=== PATIENT | female | born 1930 | race Caucasian/White ===

== ENCOUNTER 2018-08-27 15:48 | Inpatient (IN) | payer MEDICARE ==
[~2018-08-27] VITALS: Ht 157.5 cm; Wt 86.2 kg
[2018-08-27 16:41] LABS: CREATININE 1.9 mg/dL (0.5-1.5); POTASSIUM 3.8 mmol/L (3.5-5.1)
[2018-08-27 16:42] LABS: BASOPHILS % (AUTO) 0.2 % (0.0-5.0); HEMATOCRIT 32.9 % (36-48); LYMPHOCYTES % (AUTO) 2.1 % (21.0-51.0); MEAN CORPUSCULAR HEMOGLOBIN 30.3 pg (27.0-33.0); MEAN CORPUSCULAR HGB CONC 33.8 g/dL (32.0-36.0); MEAN CORPUSCULAR VOLUME 89.5 fL (79-99); MONOCYTES % (AUTO) 3.3 % (3.0-13.0); NEUTROPHILS % (AUTO) 94.4 % (40.0-77.0); PLATELET COUNT (AUTO) 321 K/uL (130-400); RED BLOOD CELL COUNT(AUTO) 3.67 MIL/uL (4.00-5.50); RED CELL DISTRIBUTION WIDTH 14.9 % (11.0-15.5)
[2018-08-27 17:05] LABS: ALBUMIN 2.4 g/dL (3.5-5.0); BILIRUBIN,TOTAL 0.5 mg/dL (0.2-1.0); TOTAL PROTEIN, SERUM 6.4 g/dL (6.0-8.3)
[2018-08-27] MEDS ORDERED: LEVOFLOXACIN 500 MG TABLET ONE (17:24)
[2018-08-27] MEDS ORDERED: ACETAMINOPHEN 325 MG TAB ONE (17:27)
[2018-08-27] MEDS ORDERED: SODIUM CHLORIDE 0.9% 500ML 500 ML IV ONE (17:34)
[2018-08-27 17:48] LABS: APPEARANCE,URINE CLOUDY (CLEAR); BILIRUBIN,URINE NEGATIVE (NEGATIVE); COLOR,URINE YELLOW (YELLOW); GLUCOSE, URINE (UA) NEGATIVE (NEGATIVE); KETONES,URINE NEGATIVE (NEGATIVE); LEUKOCYTE ESTERASE ,URINE MODERATE (NEGATIVE); NITRATE,URINE POSITIVE (NEGATIVE); OCCULT BLOOD,URINE MODERATE (NEGATIVE); PROTEIN,URINE 100 (NEGATIVE); UROBILINOGEN,URINE 0.2 mg/dL (0.2-1.0)
[2018-08-27 17:55] LABS: BACTERIA,URINE Few /HPF (None Seen)
[2018-08-27 17:56] LABS: WBC,URINE 26-50 /HPF (0-1)
[2018-08-27] MEDS ORDERED: ASPIRIN 325 MG TABLET ONE (18:07)
[2018-08-27] MEDS ORDERED: ENOXAPARIN SODIUM 40 MG/0.4 ML SYRINGE SQ ONE (18:07)
[2018-08-27] MEDS ORDERED: VANCOMYCIN 1GM+NS 250ML 250 ML IV ONE (18:47)
[2018-08-28] VITALS (7 sets, daily range): BP systolic 92–134; BP diastolic 50–62
[2018-08-28 00:46] LABS: TROPONIN I 1.05 ng/mL (0.00-0.06)
[2018-08-28 05:25] LABS: BASOPHILS % (AUTO) 0.1 % (0.0-5.0); EOSINOPHILS % (AUTO) 0.1 % (0.0-8.0); HEMATOCRIT 30.2 % (36-48); LYMPHOCYTES % (AUTO) 6.3 % (21.0-51.0); MEAN CORPUSCULAR HEMOGLOBIN 30.7 pg (27.0-33.0); MEAN CORPUSCULAR HGB CONC 34.4 g/dL (32.0-36.0); MEAN CORPUSCULAR VOLUME 89.4 fL (79-99); MONOCYTES % (AUTO) 5.5 % (3.0-13.0); PLATELET COUNT (AUTO) 273 K/uL (130-400); RED BLOOD CELL COUNT(AUTO) 3.38 MIL/uL (4.00-5.50); RED CELL DISTRIBUTION WIDTH 14.6 % (11.0-15.5); WHITE BLOOD COUNT (AUTO) 14.1 K/uL (4.8-10.8)
[2018-08-28 05:49] LABS: BILIRUBIN,TOTAL 0.4 mg/dL (0.2-1.0); CREATININE 1.8 mg/dL (0.5-1.5); MAGNESIUM 2.2 mg/dL (1.80-2.40); POTASSIUM 4.1 mmol/L (3.5-5.1); TOTAL PROTEIN, SERUM 5.7 g/dL (6.0-8.3); TROPONIN I 0.57 ng/mL (0.00-0.06)
[2018-08-28] MEDS: PANTOPRAZOLE SODIUM 40 MG TABLET.DR PO SCH (09:54)
[2018-08-28] MEDS: METOPROLOL TARTRATE 25 MG TAB PO SCH ×2 (09:55→20:51)
[2018-08-28] MEDS: ASPIRIN 325 MG TABLET PO SCH (09:55)
[2018-08-28] MEDS: ENOXAPARIN SODIUM 30 MG/0.3 ML SQ SCH (10:04)
[2018-08-28] MEDS ORDERED: ENOXAPARIN SODIUM 1 MG/KG SQ SCH (11:00)
[2018-08-28] MEDS ORDERED: LEVOFLOXACIN 250 MG/D5W 50ML 50 ML IVPB SCH (18:00)
[2018-08-28] MEDS: SODIUM CHLORIDE 0.9% 1000ML 1,000 ML IV SCH ×2 (18:33→18:34)
[2018-08-28] MEDS ORDERED: DIPHENHYDRAMINE HCL 25 MG CAPSULE PO PRN (20:15)
[2018-08-28] MEDS ORDERED: GENTAMICIN PROTOCOL PER PHARMACY IV SCH (20:15)
[2018-08-28] MEDS ORDERED: GENTAMICIN 80 MG/NS 100 ML PB 100 ML IV SCH (21:00)
[2018-08-28] MEDS: ACETAMINOPHEN 325 MG TAB PO PRN (23:18)
[2018-08-29 03:54] VITALS: BP 128/68
[2018-08-29 04:45] LABS: HEMATOCRIT 32.2 % (36-48); MEAN CORPUSCULAR HEMOGLOBIN 29.9 pg (27.0-33.0); MEAN CORPUSCULAR HGB CONC 33.5 g/dL (32.0-36.0); MEAN CORPUSCULAR VOLUME 89.4 fL (79-99); NUCLEATED RED BLOOD CELLS 0.1 % (0.0-0.19); PLATELET COUNT (AUTO) 275 K/uL (130-400); WHITE BLOOD COUNT (AUTO) 14.2 K/uL (4.8-10.8)
[2018-08-29 04:52] LABS: CREATININE 1.7 mg/dL (0.5-1.5); POTASSIUM 3.7 mmol/L (3.5-5.1)
[2018-08-29 07:30] VITALS: BP 119/68
[2018-08-29] MEDS: ASPIRIN 325 MG TABLET PO SCH (07:54)
[2018-08-29] MEDS: METOPROLOL TARTRATE 25 MG TAB PO SCH ×2 (07:54→20:59)
[2018-08-29] MEDS: PANTOPRAZOLE SODIUM 40 MG TABLET.DR PO SCH (07:55)
[2018-08-29] MEDS: ENOXAPARIN SODIUM 30 MG/0.3 ML SQ SCH (07:56)
[2018-08-29] MEDS ORDERED: ENOXAPARIN SODIUM 30 MG/0.3 ML SQ SCH (08:00)
[2018-08-29] MEDS: SODIUM CHLORIDE 0.9% 1000ML 1,000 ML IV SCH ×2 (08:03→18:21)
[2018-08-29] MEDS: AZTREONAM 1 GM VIAL IVP SCH ×2 (10:32→22:49)
[2018-08-29 11:00] VITALS: BP 117/61
[2018-08-29 16:00] VITALS: BP 134/56
[2018-08-29 20:00] VITALS: BP 122/72
[2018-08-30] VITALS (13 sets, daily range): BP systolic 89–155; BP diastolic 43–99
[2018-08-30] MEDS: ACETAMINOPHEN 325 MG TAB PO PRN (00:52)
[2018-08-30] MEDS: SODIUM CHLORIDE 0.9% 1000ML 1,000 ML IV SCH ×2 (04:21→20:24)
[2018-08-30 05:45] LABS: MEAN CORPUSCULAR HEMOGLOBIN 30.4 pg (27.0-33.0); MEAN CORPUSCULAR VOLUME 89.5 fL (79-99); PLATELET COUNT (AUTO) 280 K/uL (130-400); RED BLOOD CELL COUNT(AUTO) 3.46 MIL/uL (4.00-5.50); RED CELL DISTRIBUTION WIDTH 15.3 % (11.0-15.5); WHITE BLOOD COUNT (AUTO) 15.2 K/uL (4.8-10.8)
[2018-08-30 06:00] LABS: CREATININE 1.7 mg/dL (0.5-1.5); POTASSIUM 3.5 mmol/L (3.5-5.1)
[2018-08-30] MEDS: METOPROLOL TARTRATE 25 MG TAB PO SCH ×2 (08:59→21:12)
[2018-08-30] MEDS: PANTOPRAZOLE SODIUM 40 MG TABLET.DR PO SCH (08:59)
[2018-08-30] MEDS: ENOXAPARIN SODIUM 30 MG/0.3 ML SQ SCH (09:00)
[2018-08-30] MEDS: AZTREONAM 1 GM VIAL IVP SCH ×2 (09:00→21:16)
[2018-08-30] MEDS: ASPIRIN 81MG TAB.CHEW PO SCH (09:06)
[2018-08-30] MEDS ORDERED: SODIUM CHLORIDE 0.9% 500ML 500 ML IV SCH (16:30)
[2018-08-30] MEDS ORDERED: TOPI50TA24 PO (16:54)
[2018-08-30] MEDS ORDERED: AMLO2.5T3 PO (16:54)
[2018-08-30] MEDS ORDERED: OXYB5SYR2 PO (16:54)
[2018-08-30] MEDS ORDERED: OMEP20CA10 PO (16:54)
[2018-08-30] MEDS ORDERED: ATOR40TA69 PO (16:54)
[2018-08-30] MEDS ORDERED: ATOR20TA65 PO (16:54)
[2018-08-30 17:00] LABS: ABG BASE EXCESS -5.7 mmol/L (-2.0-3.0); ABG HCO3 17.6 mmol/L (21.0-28.0); ABG OXYGEN SATURATION 96.8 % (95.0-99.0); ABG PCO2 29 mmHg (32-45)
[2018-08-30] MEDS: IPRATROPIUM/ALBUTEROL SULFATE 3 ML SOLUTION IH SCH ×2 (17:08→21:26)
[2018-08-31] VITALS (23 sets, daily range): BP systolic 92–149; BP diastolic 42–89
[2018-08-31] MEDS: SODIUM CHLORIDE 0.9% 1000ML 1,000 ML IV SCH ×5 (00:21→21:07)
[2018-08-31] MEDS: IPRATROPIUM/ALBUTEROL SULFATE 3 ML SOLUTION IH SCH ×6 (01:35→22:19)
[2018-08-31 03:42] LABS: HEMATOCRIT 29.2 % (36-48); MEAN CORPUSCULAR HEMOGLOBIN 29.3 pg (27.0-33.0); MEAN CORPUSCULAR HGB CONC 32.7 g/dL (32.0-36.0); MEAN CORPUSCULAR VOLUME 89.6 fL (79-99); PLATELET COUNT (AUTO) 246 K/uL (130-400); RED BLOOD CELL COUNT(AUTO) 3.26 MIL/uL (4.00-5.50); RED CELL DISTRIBUTION WIDTH 15.2 % (11.0-15.5); WHITE BLOOD COUNT (AUTO) 18.3 K/uL (4.8-10.8)
[2018-08-31 04:00] LABS: CREATININE 1.4 mg/dL (0.5-1.5); POTASSIUM 4.3 mmol/L (3.5-5.1)
[2018-08-31] MEDS ORDERED: PHARMACY COMMUNICATION MISC SCH (07:45)
[2018-08-31] MEDS: METOPROLOL TARTRATE 25 MG TAB PO SCH ×3 (07:47→21:08)
[2018-08-31] MEDS: ASPIRIN 81MG TAB.CHEW PO SCH (08:17)
[2018-08-31] MEDS: MEROPENEM 500 MG VIAL IVP SCH ×2 (08:17→15:37)
[2018-08-31] MEDS: PANTOPRAZOLE SODIUM 40 MG TABLET.DR PO SCH (08:17)
[2018-08-31] MEDS: ENOXAPARIN SODIUM 30 MG/0.3 ML SQ SCH (08:19)
[2018-08-31] MEDS: AZTREONAM 1 GM VIAL IVP SCH ×2 (09:56→21:07)
[2018-08-31] MEDS: ACETAMINOPHEN 325 MG TAB PO PRN (10:06)
[2018-08-31] MEDS ORDERED: AMIODARONE HCL 150 MG in DEXTROSE 5%-WATER 100 ML IV SCH (11:30)
[2018-08-31] MEDS ORDERED: AMIODARONE HCL 900 MG in DEXTROSE 5%-WATER 500 ML IV SCH (11:30)
[2018-08-31] MEDS ORDERED: LACTATED RINGERS 1000ML IV SCH (11:45)
[2018-08-31] MEDS ORDERED: ENOXAPARIN SODIUM 1 MG/KG SQ SCH (21:00)
[2018-08-31] MEDS: ENOXAPARIN SODIUM 80 MG/0.8 ML SQ SCH (21:07)
[2018-09-01] VITALS (21 sets, daily range): BP systolic 93–149; BP diastolic 49–78
[2018-09-01] MEDS: MEROPENEM 500 MG VIAL IVP SCH ×3 (01:11→16:14)
[2018-09-01] MEDS: IPRATROPIUM/ALBUTEROL SULFATE 3 ML SOLUTION IH SCH ×3 (01:52→10:03)
[2018-09-01 04:06] LABS: HEMATOCRIT 27.3 % (36-48); MEAN CORPUSCULAR HEMOGLOBIN 30.4 pg (27.0-33.0); MEAN CORPUSCULAR HGB CONC 34.1 g/dL (32.0-36.0); MEAN CORPUSCULAR VOLUME 89.2 fL (79-99); PLATELET COUNT (AUTO) 231 K/uL (130-400); RED BLOOD CELL COUNT(AUTO) 3.07 MIL/uL (4.00-5.50); RED CELL DISTRIBUTION WIDTH 15.3 % (11.0-15.5); WHITE BLOOD COUNT (AUTO) 15.9 K/uL (4.8-10.8)
[2018-09-01 04:12] LABS: % IRON SATURATION 6.2 % (22-44)
[2018-09-01 04:25] LABS: CREATININE 1.5 mg/dL (0.5-1.5); MAGNESIUM 1.5 mg/dL (1.80-2.40); PHOSPHORUS 1.8 mg/dL (2.5-4.9); POTASSIUM 3.4 mmol/L (3.5-5.1); THYROID STIMULATING HORMONE 0.49 uIU/mL (0.36-3.74)
[2018-09-01] MEDS: SODIUM CHLORIDE 0.9% 1000ML 1,000 ML IV SCH ×2 (04:46→12:13)
[2018-09-01] MEDS: METOPROLOL TARTRATE 25 MG TAB PO SCH (08:23)
[2018-09-01] MEDS: PANTOPRAZOLE SODIUM 40 MG TABLET.DR PO SCH (08:23)
[2018-09-01] MEDS: ENOXAPARIN SODIUM 80 MG/0.8 ML SQ SCH (08:23)
[2018-09-01] MEDS: ASPIRIN 81MG TAB.CHEW PO SCH (08:23)
[2018-09-01] MEDS ORDERED: POTASSIUM CHLORIDE 20MEQ/100ML 100 ML IV PRN (09:45)
[2018-09-01] MEDS ORDERED: MAGNESIUM 2GM PREMIX 50ML 50 ML IV PRN (09:45)
[2018-09-01] MEDS ORDERED: LIDOCAINE HCL-MPF 1% 2ML VIAL IVP PRN (09:45)
[2018-09-01] MEDS ORDERED: POTASSIUM CHLORIDE 10% ELIXIR 20 MEQ/15 ML UDCUP PO PRN (09:45)
[2018-09-01] MEDS ORDERED: MAGNESIUM SULFATE 1 GM in SODIUM CHLORIDE 0.9% 50 ML IV SCH (09:45)
[2018-09-01] MEDS ORDERED: MAGNESIUM 4GM PREMIX 100ML 100 ML IV SCH (09:45)
[2018-09-01] MEDS: AZTREONAM 1 GM VIAL IVP SCH (10:50)
[2018-09-01] MEDS: POTASSIUM CHLORIDE 20 MEQ ERTAB PO PRN ×2 (12:13→14:21)
[2018-09-01] MEDS ORDERED: POTASSIUM PHOS 15 mMOL+NS250ML 250 ML IV ONE (14:15)
[2018-09-01] MEDS ORDERED: POTASSIUM PHOS 15 mMOL+NS250ML 250 ML IV SCH (14:15)
[2018-09-01] MEDS ORDERED: IPRATROPIUM/ALBUTEROL SULFATE 3 ML SOLUTION IH PRN (16:00)
[2018-09-01] MEDS ORDERED: COMPOUND IV MISC 1 EACH IVSOLN MISC PRN (20:15)
[2018-09-01] MEDS: APIXABAN 2.5 MG TABLET PO SCH (20:35)
[2018-09-01] MEDS: METOPROLOL TARTRATE 50 MG TAB PO SCH (20:36)
[2018-09-01] MEDS: SODIUM CHLORIDE 3% FOR INHALATION 4 ML/AMP VIAL.NEB IH SCH (21:47)
[2018-09-02] MEDS: MEROPENEM 500 MG VIAL IVP SCH ×4 (01:19→23:23)
[2018-09-02] MEDS: SODIUM CHLORIDE 0.9% 1000ML 1,000 ML IV SCH ×2 (03:46→03:48)
[2018-09-02] MEDS: NEUTRA-PHOS PACKET 1 EACH PO SCH ×5 (03:48→20:49)
[2018-09-02 04:00] VITALS: BP 134/70
[2018-09-02 04:25] LABS: HEMATOCRIT 26.2 % (36-48); MEAN CORPUSCULAR HEMOGLOBIN 30.6 pg (27.0-33.0); MEAN CORPUSCULAR HGB CONC 34.6 g/dL (32.0-36.0); MEAN CORPUSCULAR VOLUME 88.6 fL (79-99); PLATELET COUNT (AUTO) 198 K/uL (130-400); RED BLOOD CELL COUNT(AUTO) 2.96 MIL/uL (4.00-5.50); RED CELL DISTRIBUTION WIDTH 15.7 % (11.0-15.5); WHITE BLOOD COUNT (AUTO) 10.7 K/uL (4.8-10.8)
[2018-09-02 04:36] LABS: CREATININE 1.2 mg/dL (0.5-1.5); MAGNESIUM 2.2 mg/dL (1.80-2.40); PHOSPHORUS 2.4 mg/dL (2.5-4.9)
[2018-09-02] MEDS: SODIUM CHLORIDE 3% FOR INHALATION 4 ML/AMP VIAL.NEB IH SCH ×3 (06:09→21:56)
[2018-09-02 07:50] VITALS: BP 125/65
[2018-09-02] MEDS: IRON SUCROSE COMPLEX 100 MG in SODIUM CHLORIDE 0.9% 50 ML IV SCH (08:17)
[2018-09-02] MEDS: ASPIRIN 81MG TAB.CHEW PO SCH (08:17)
[2018-09-02] MEDS: PANTOPRAZOLE SODIUM 40 MG TABLET.DR PO SCH (08:17)
[2018-09-02] MEDS: METOPROLOL TARTRATE 50 MG TAB PO SCH ×2 (08:17→20:48)
[2018-09-02] MEDS: APIXABAN 2.5 MG TABLET PO SCH ×2 (08:17→20:48)
[2018-09-02 11:44] VITALS: BP 144/74
[2018-09-02] MEDS ORDERED: EPOETIN ALFA 10,000 UNIT/ML VIAL SQ SCH (12:00)
[2018-09-02 12:46] LABS: PARTIAL THROMBOPLASTIN TIME 33.8 SEC (26.3-35.5); PROTHROMBIN TIME 10.5 SEC (9.6-11.6)
[2018-09-02 16:46] VITALS: BP 154/73
[2018-09-02 19:40] VITALS: BP 138/69
[2018-09-02 23:53] VITALS: BP 155/77
[2018-09-03 03:59] VITALS: BP 129/64
[2018-09-03 04:04] LABS: HEMATOCRIT 27.8 % (36-48); MEAN CORPUSCULAR HEMOGLOBIN 30.8 pg (27.0-33.0); MEAN CORPUSCULAR HGB CONC 34.6 g/dL (32.0-36.0); MEAN CORPUSCULAR VOLUME 89.3 fL (79-99); PLATELET COUNT (AUTO) 260 K/uL (130-400); RED BLOOD CELL COUNT(AUTO) 3.12 MIL/uL (4.00-5.50); RED CELL DISTRIBUTION WIDTH 15.7 % (11.0-15.5); WHITE BLOOD COUNT (AUTO) 9.6 K/uL (4.8-10.8)
[2018-09-03 04:16] LABS: CREATININE 1.1 mg/dL (0.5-1.5); PHOSPHORUS 3.3 mg/dL (2.5-4.9); POTASSIUM 4.6 mmol/L (3.5-5.1)
[2018-09-03] MEDS: SODIUM CHLORIDE 3% FOR INHALATION 4 ML/AMP VIAL.NEB IH SCH ×3 (06:10→21:51)
[2018-09-03 08:00] VITALS: BP 143/69
[2018-09-03] MEDS: PANTOPRAZOLE SODIUM 40 MG TABLET.DR PO SCH (09:53)
[2018-09-03] MEDS: ASPIRIN 81MG TAB.CHEW PO SCH (09:53)
[2018-09-03] MEDS: NEUTRA-PHOS PACKET 1 EACH PO SCH ×3 (09:53→21:47)
[2018-09-03] MEDS: METOPROLOL TARTRATE 50 MG TAB PO SCH ×2 (09:54→21:47)
[2018-09-03] MEDS: APIXABAN 2.5 MG TABLET PO SCH ×2 (09:54→21:47)
[2018-09-03] MEDS: MEROPENEM 500 MG VIAL IVP SCH ×2 (09:54→21:45)
[2018-09-03] MEDS: IRON SUCROSE COMPLEX 100 MG in SODIUM CHLORIDE 0.9% 50 ML IV SCH (10:03)
[2018-09-03 11:40] VITALS: BP 154/52
[2018-09-03 15:52] VITALS: BP 128/59
[2018-09-03 20:05] VITALS: BP 132/55
[2018-09-04] VITALS (7 sets, daily range): BP systolic 122–153; BP diastolic 60–83
[2018-09-04] MEDS: ACETAMINOPHEN 325 MG TAB PO PRN (00:29)
[2018-09-04] MEDS: MEROPENEM 500 MG VIAL IVP SCH ×4 (00:30→23:59)
[2018-09-04 04:09] LABS: HEMATOCRIT 28.3 % (36-48); MEAN CORPUSCULAR HEMOGLOBIN 29.6 pg (27.0-33.0); MEAN CORPUSCULAR HGB CONC 32.8 g/dL (32.0-36.0); NUCLEATED RED BLOOD CELLS 0.1 % (0.0-0.19); PLATELET COUNT (AUTO) 262 K/uL (130-400); RED BLOOD CELL COUNT(AUTO) 3.14 MIL/uL (4.00-5.50); RED CELL DISTRIBUTION WIDTH 15.3 % (11.0-15.5); WHITE BLOOD COUNT (AUTO) 11.4 K/uL (4.8-10.8)
[2018-09-04 04:19] LABS: CREATININE 1.1 mg/dL (0.5-1.5); CRP QUANTITATIVE 76.6 mg/L (0.00-9.0); POTASSIUM 4.3 mmol/L (3.5-5.1)
[2018-09-04 05:15] LABS: ERYTHROCYTE SEDIMENTATION RATE 70 MM/HR (0-30)
[2018-09-04] MEDS: SODIUM CHLORIDE 3% FOR INHALATION 4 ML/AMP VIAL.NEB IH SCH ×2 (06:31→13:16)
[2018-09-04] MEDS: ONDANSETRON HCL 4 MG/2 ML VIAL IV PRN (08:34)
[2018-09-04] MEDS: METOPROLOL TARTRATE 50 MG TAB PO SCH ×2 (09:02→20:51)
[2018-09-04] MEDS: APIXABAN 2.5 MG TABLET PO SCH ×2 (09:02→20:51)
[2018-09-04] MEDS: ASPIRIN 81MG TAB.CHEW PO SCH (09:02)
[2018-09-04] MEDS: PANTOPRAZOLE SODIUM 40 MG TABLET.DR PO SCH (09:02)
[2018-09-04] MEDS: IRON SUCROSE COMPLEX 100 MG in SODIUM CHLORIDE 0.9% 50 ML IV SCH (13:38)
[2018-09-05] MEDS: ACETAMINOPHEN 325 MG TAB PO PRN (01:08)
[2018-09-05 04:10] VITALS: BP 160/71
[2018-09-05 04:30] LABS: MEAN CORPUSCULAR HEMOGLOBIN 30.1 pg (27.0-33.0); MEAN CORPUSCULAR HGB CONC 33.7 g/dL (32.0-36.0); MEAN CORPUSCULAR VOLUME 89.4 fL (79-99); NUCLEATED RED BLOOD CELLS 0.1 % (0.0-0.19); PLATELET COUNT (AUTO) 309 K/uL (130-400); RED BLOOD CELL COUNT(AUTO) 3.24 MIL/uL (4.00-5.50); RED CELL DISTRIBUTION WIDTH 15.4 % (11.0-15.5); WHITE BLOOD COUNT (AUTO) 13.5 K/uL (4.8-10.8)
[2018-09-05 04:42] LABS: CREATININE 1.1 mg/dL (0.5-1.5); CRP QUANTITATIVE 55.3 mg/L (0.00-9.0); POTASSIUM 4.2 mmol/L (3.5-5.1)
[2018-09-05 07:45] VITALS: BP 147/74
[2018-09-05] MEDS: MEROPENEM 500 MG VIAL IVP SCH ×2 (09:18→17:18)
[2018-09-05] MEDS: METOPROLOL TARTRATE 50 MG TAB PO SCH ×2 (09:19→21:02)
[2018-09-05] MEDS: APIXABAN 2.5 MG TABLET PO SCH ×2 (09:19→21:02)
[2018-09-05] MEDS: ASPIRIN 81MG TAB.CHEW PO SCH (09:19)
[2018-09-05] MEDS: PANTOPRAZOLE SODIUM 40 MG TABLET.DR PO SCH (09:19)
[2018-09-05 11:07] VITALS: BP 135/51
[2018-09-05] MEDS: IRON SUCROSE COMPLEX 100 MG in SODIUM CHLORIDE 0.9% 50 ML IV SCH (12:46)
[2018-09-05 15:59] VITALS: BP 142/75
[2018-09-05 19:34] VITALS: BP 140/63
[2018-09-05 23:32] VITALS: BP 152/66
[2018-09-06] MEDS: MEROPENEM 500 MG VIAL IVP SCH ×3 (00:57→16:41)
[2018-09-06] MEDS: ONDANSETRON HCL 4 MG/2 ML VIAL IV PRN (01:56)
[2018-09-06] MEDS: ACETAMINOPHEN 325 MG TAB PO PRN (01:58)
[2018-09-06 03:40] VITALS: BP 142/68
[2018-09-06 04:27] LABS: BASOPHILS % (AUTO) 0.6 % (0.0-5.0); EOSINOPHILS % (AUTO) 2.3 % (0.0-8.0); HEMATOCRIT 29.6 % (36-48); MEAN CORPUSCULAR HEMOGLOBIN 30.2 pg (27.0-33.0); MEAN CORPUSCULAR HGB CONC 33.6 g/dL (32.0-36.0); MEAN CORPUSCULAR VOLUME 89.8 fL (79-99); MONOCYTES % (AUTO) 6.8 % (3.0-13.0); NEUTROPHILS % (AUTO) 82.3 % (40.0-77.0); NUCLEATED RED BLOOD CELLS 0.1 % (0.0-0.19); PLATELET COUNT (AUTO) 342 K/uL (130-400); RED BLOOD CELL COUNT(AUTO) 3.29 MIL/uL (4.00-5.50); RED CELL DISTRIBUTION WIDTH 15.5 % (11.0-15.5); WHITE BLOOD COUNT (AUTO) 12.8 K/uL (4.8-10.8)
[2018-09-06 04:32] LABS: CREATININE 1.1 mg/dL (0.5-1.5); POTASSIUM 4.1 mmol/L (3.5-5.1)
[2018-09-06 07:49] VITALS: BP 132/82
[2018-09-06] MEDS: APIXABAN 2.5 MG TABLET PO SCH ×2 (10:22→20:34)
[2018-09-06] MEDS: METOPROLOL TARTRATE 50 MG TAB PO SCH ×2 (10:22→20:34)
[2018-09-06] MEDS: PANTOPRAZOLE SODIUM 40 MG TABLET.DR PO SCH (10:22)
[2018-09-06] MEDS: ASPIRIN 81MG TAB.CHEW PO SCH (10:22)
[2018-09-06 11:08] VITALS: BP 127/68
[2018-09-06] MEDS: IRON SUCROSE COMPLEX 100 MG in SODIUM CHLORIDE 0.9% 50 ML IV SCH (13:02)
[2018-09-06 16:38] VITALS: BP 172/86
[2018-09-06 20:03] VITALS: BP 143/67
[2018-09-07] VITALS (7 sets, daily range): BP systolic 143–161; BP diastolic 63–82
[2018-09-07] MEDS: MEROPENEM 500 MG VIAL IVP SCH ×3 (00:46→16:53)
[2018-09-07 04:01] LABS: BASOPHILS % (AUTO) 0.9 % (0.0-5.0); EOSINOPHILS % (AUTO) 2.3 % (0.0-8.0); HEMATOCRIT 29.1 % (36-48); MEAN CORPUSCULAR HGB CONC 33.4 g/dL (32.0-36.0); MEAN CORPUSCULAR VOLUME 89.8 fL (79-99); MONOCYTES % (AUTO) 7.9 % (3.0-13.0); NEUTROPHILS % (AUTO) 77.9 % (40.0-77.0); NUCLEATED RED BLOOD CELLS 0.1 % (0.0-0.19); PLATELET COUNT (AUTO) 335 K/uL (130-400); RED BLOOD CELL COUNT(AUTO) 3.24 MIL/uL (4.00-5.50); RED CELL DISTRIBUTION WIDTH 15.7 % (11.0-15.5); WHITE BLOOD COUNT (AUTO) 10.1 K/uL (4.8-10.8)
[2018-09-07 04:21] LABS: POTASSIUM 4.2 mmol/L (3.5-5.1)
[2018-09-07] MEDS: PANTOPRAZOLE SODIUM 40 MG TABLET.DR PO SCH (08:34)
[2018-09-07] MEDS: APIXABAN 2.5 MG TABLET PO SCH ×2 (08:34→20:51)
[2018-09-07] MEDS: ASPIRIN 81MG TAB.CHEW PO SCH (08:34)
[2018-09-07] MEDS: IRON SUCROSE COMPLEX 100 MG in SODIUM CHLORIDE 0.9% 50 ML IV SCH (08:34)
[2018-09-07] MEDS: METOPROLOL TARTRATE 50 MG TAB PO SCH ×2 (08:34→20:52)
[2018-09-07] MEDS: DIPHENHYDRAMINE HCL 25 MG CAPSULE PO SCH (20:58)
[2018-09-08] MEDS: MEROPENEM 500 MG VIAL IVP SCH ×4 (01:20→23:53)
[2018-09-08 03:10] VITALS: BP 135/72
[2018-09-08 03:56] LABS: EOSINOPHILS % (AUTO) 2.7 % (0.0-8.0); HEMATOCRIT 28.7 % (36-48); LYMPHOCYTES % (AUTO) 13.4 % (21.0-51.0); MEAN CORPUSCULAR HEMOGLOBIN 30.9 pg (27.0-33.0); MEAN CORPUSCULAR HGB CONC 33.9 g/dL (32.0-36.0); MEAN CORPUSCULAR VOLUME 91.2 fL (79-99); MONOCYTES % (AUTO) 8.6 % (3.0-13.0); NEUTROPHILS % (AUTO) 74.3 % (40.0-77.0); PLATELET COUNT (AUTO) 352 K/uL (130-400); RED BLOOD CELL COUNT(AUTO) 3.15 MIL/uL (4.00-5.50); RED CELL DISTRIBUTION WIDTH 15.9 % (11.0-15.5); WHITE BLOOD COUNT (AUTO) 8.1 K/uL (4.8-10.8)
[2018-09-08 03:59] LABS: CREATININE 1.1 mg/dL (0.5-1.5); POTASSIUM 4.2 mmol/L (3.5-5.1)
[2018-09-08 08:00] VITALS: BP 126/67
[2018-09-08] MEDS: ASPIRIN 81MG TAB.CHEW PO SCH (08:33)
[2018-09-08] MEDS: PANTOPRAZOLE SODIUM 40 MG TABLET.DR PO SCH (08:34)
[2018-09-08] MEDS: IRON SUCROSE COMPLEX 100 MG in SODIUM CHLORIDE 0.9% 50 ML IV SCH (08:34)
[2018-09-08] MEDS: METOPROLOL TARTRATE 50 MG TAB PO SCH ×2 (08:34→20:43)
[2018-09-08] MEDS: APIXABAN 2.5 MG TABLET PO SCH ×2 (08:34→20:43)
[2018-09-08 11:00] VITALS: BP 155/67
[2018-09-08 16:00] VITALS: BP 157/81
[2018-09-08 19:15] VITALS: BP 183/80
[2018-09-08] MEDS: MIRTAZAPINE 15 MG TABLET PO SCH (20:43)
[2018-09-08] MEDS: DIPHENHYDRAMINE HCL 25 MG CAPSULE PO SCH (20:43)
[2018-09-08 23:15] VITALS: BP 143/67
[2018-09-09 04:00] VITALS: BP 150/67
[2018-09-09 07:55] VITALS: BP 145/75
[2018-09-09] MEDS: ASPIRIN 81MG TAB.CHEW PO SCH (08:47)
[2018-09-09] MEDS: APIXABAN 2.5 MG TABLET PO SCH ×2 (08:47→20:40)
[2018-09-09] MEDS: METOPROLOL TARTRATE 50 MG TAB PO SCH ×2 (08:47→20:40)
[2018-09-09] MEDS: PANTOPRAZOLE SODIUM 40 MG TABLET.DR PO SCH (08:48)
[2018-09-09] MEDS: MEROPENEM 500 MG VIAL IVP SCH ×2 (08:48→16:54)
[2018-09-09] MEDS: IRON SUCROSE COMPLEX 100 MG in SODIUM CHLORIDE 0.9% 50 ML IV SCH (09:00)
[2018-09-09 11:00] VITALS: BP 152/72
[2018-09-09] MEDS ORDERED: NYSTATIN 15 GM POWDER TP SCH (12:30)
[2018-09-09 16:00] VITALS: BP 127/48
[2018-09-09] MEDS: TOPIRAMATE 25 MG TABLET PO SCH (16:54)
[2018-09-09 19:15] VITALS: BP_SYST 130; BP_SYST 160; BP_DIAS 73
[2018-09-09] MEDS: MIRTAZAPINE 15 MG TABLET PO SCH (20:40)
[2018-09-09] MEDS: OXYBUTYNIN CHLORIDE 5 MG TABLET PO SCH (20:40)
[2018-09-09] MEDS: HYDROCORTISONE 1% 28.35 GM CREAM TP SCH (20:41)
[2018-09-09] MEDS: NYSTATIN 15 GM POWDER TP SCH (20:52)
[2018-09-09] MEDS ORDERED: LACTOBACILLUS RHAMNOSUS GG 1 EACH CAP.SPRINK PO SCH (21:00)
[2018-09-09] MEDS ORDERED: ATORVASTATIN CALCIUM 20 MG TABLET PO SCH (21:00)
[2018-09-09 23:10] VITALS: BP 137/61
[2018-09-10] MEDS: MEROPENEM 500 MG VIAL IVP SCH ×3 (01:00→17:26)
[2018-09-10 03:35] VITALS: BP 159/66
[2018-09-10 05:03] LABS: BASOPHILS % (AUTO) 1.3 % (0.0-5.0); EOSINOPHILS % (AUTO) 3.2 % (0.0-8.0); HEMATOCRIT 28.7 % (36-48); LYMPHOCYTES % (AUTO) 11.2 % (21.0-51.0); MEAN CORPUSCULAR HEMOGLOBIN 30.9 pg (27.0-33.0); MEAN CORPUSCULAR HGB CONC 33.8 g/dL (32.0-36.0); MEAN CORPUSCULAR VOLUME 91.4 fL (79-99); MONOCYTES % (AUTO) 9.1 % (3.0-13.0); NEUTROPHILS % (AUTO) 75.2 % (40.0-77.0); PLATELET COUNT (AUTO) 375 K/uL (130-400); RED BLOOD CELL COUNT(AUTO) 3.14 MIL/uL (4.00-5.50); RED CELL DISTRIBUTION WIDTH 16.7 % (11.0-15.5); WHITE BLOOD COUNT (AUTO) 8.4 K/uL (4.8-10.8)
[2018-09-10 05:10] LABS: CREATININE 1.2 mg/dL (0.5-1.5); POTASSIUM 4.3 mmol/L (3.5-5.1)
[2018-09-10 07:55] VITALS: BP 156/71
[2018-09-10] MEDS: APIXABAN 2.5 MG TABLET PO SCH (08:56)
[2018-09-10] MEDS: TOPIRAMATE 25 MG TABLET PO SCH (08:57)
[2018-09-10] MEDS: METOPROLOL TARTRATE 50 MG TAB PO SCH (08:57)
[2018-09-10] MEDS: OXYBUTYNIN CHLORIDE 5 MG TABLET PO SCH (08:57)
[2018-09-10] MEDS: PANTOPRAZOLE SODIUM 40 MG TABLET.DR PO SCH (08:57)
[2018-09-10] MEDS: ASPIRIN 81MG TAB.CHEW PO SCH (08:57)
[2018-09-10] MEDS ORDERED: AMLODIPINE BESYLATE 2.5 MG TAB PO SCH (09:00)
[2018-09-10] MEDS: IRON SUCROSE COMPLEX 100 MG in SODIUM CHLORIDE 0.9% 50 ML IV SCH (10:54)
[2018-09-10 11:18] VITALS: BP 129/72
[2018-09-10 16:16] VITALS: BP 163/68
[2018-09-10] MEDS: NYSTATIN 15 GM POWDER TP SCH (17:21)
[2018-09-10] MEDS: HYDROCORTISONE 1% 28.35 GM CREAM TP SCH (17:21)
== END 2018-09-10 19:44 | DRG 871 ==
LOC: EDH 15:48 → EDHIP 18:45 → 3CH 23:08 → 2CH 08-30 20:15 → 2AH 09-01 16:13 → 4BH 09-04 16:54
PROVIDERS: ADMIT Internal Medicine; ATTEND Internal Medicine
PROC: 02HV33Z Insertion of Infusion Device into Superior Vena Cava, Percutaneous Approach (ICD-10-PCS; principal; 2018-09-03)
DX: A41.51 Sepsis due to Escherichia coli [E. coli] (principal); G93.41 Metabolic encephalopathy; R65.21 Severe sepsis with septic shock; I21.4 Non-ST elevation (NSTEMI) myocardial infarction; N17.9 Acute kidney failure, unspecified; N18.4 Chronic kidney disease, stage 4 (severe); N30.00 Acute cystitis without hematuria; B96.1 Klebsiella pneumoniae [K. pneumoniae] as the cause of diseases classified elsewhere; D50.9 Iron deficiency anemia, unspecified; E78.5 Hyperlipidemia, unspecified; E83.39 Other disorders of phosphorus metabolism; E83.42 Hypomagnesemia; I34.0 Nonrheumatic mitral (valve) insufficiency; I12.9 Hypertensive chronic kidney disease with stage 1 through stage 4 chronic kidney disease, or unspecified chronic kidney disease; I48.91 Unspecified atrial fibrillation; J40 Bronchitis, not specified as acute or chronic; Z88.0 Allergy status to penicillin; Z88.1 Allergy status to other antibiotic agents; Z74.01 Bed confinement status; Z88.2 Allergy status to sulfonamides
CPT/HCPCS: 36415; 36600; 70450; 71045; 71046; 76770; 80048; 80053; 80061; 81001; 82550; 82803; 83540; 83550; 83605; 83735; 83874; 84100; 84443; 84484; 85025; 85027; 85610; 85651; 85730; 86140; 87040; 87071; 87077; 87088; 87186; 87205; 87804; 93005; 93306; 93970; 94640; 94664; 94667; 94668; 97039; A4218; A4344; C1894; G0378; J0282; J0885; J1580; J1650; J1756; J1956; J2185; J2405; J3370; J3475; J3490; J7030; J7040; J7060; J7120; Q0163